=== PATIENT | female | born 1970 | race Caucasian/White ===

== ENCOUNTER 2022-11-10 12:09 | Day surgery (SDC) | payer OTHER ==
[~2022-11-10] VITALS: Ht 160 cm; Wt 57.0 kg
[~2022-11-10 12:09] MED LIST: HYDROCODON-ACE1 EA10 PO; IBUPROFEN600 MG PO; LEVOTHYROXINE25 MCG PO; MAPAP325 MG PO; ZYRTEC10 MG PO
--- NOTE | 2022-11-10 14:24 | NUR ---
11/10/22 1424 Marielle Darden 1404 PT ARRIVED IN PACU AWAKE WITH NO C/O'S. ABD SOFT. 1415 DR AT BEDSIDE. ALL QUESTIONS ANSWERED. 1424 RESTING. REU.
--- NOTE | 2022-11-11 17:43 | OR ---
[facility] [address] [place], [place] [address] Signed DATE OF OPERATION: 11/10/2022 SURGEON: Young Medina MD PREOPERATIVE DIAGNOSIS: Colon screening. POSTOPERATIVE DIAGNOSIS: Small polyps x2, low rectum. PROCEDURE: Total colonoscopy to cecum with cold morcellation polypectomy x2. ANESTHESIA: Intravenous sedation, fentanyl 175 mcg and Versed 9 mg. INDICATIONS: This 52-year-old white woman is a patient of Dr. Ochoa and is referred for screening colonoscopy. She has never had colonoscopy in the past and has no symptoms of bleeding, diarrhea, or constipation. She has no family history of colon cancer. She did undergo cholecystectomy by me in 2015. She is admitted to undergo screening colonoscopy and understands the risks of bleeding, infection, and perforation. FINDINGS: The prep was excellent. Complete colonoscopy was undertaken to the cecum. She had two very small polyps of the low rectum, possibly hyperplastic, but one at least look adenomatous, though very small. DESCRIPTION OF PROCEDURE: The patient was brought to the endoscopy suite and placed in lateral decubitus position given intravenous sedation to the point of slurred speech and nystagmus. Digital rectal examination was normal. An Olympus video colonoscope was passed into the rectum and manipulated throughout the colon. Various maneuvers were required to ultimately pass the hepatic flexure and ultimately to the cecum. Full intubation of the cecum was accomplished. The ileocecal valve and appendiceal orifice were normal. The scope was withdrawn from that point. Careful inspection throughout showed no sign of abnormality until the rectum, at which point two small polyps, one of which was adenomatous; the other probably hyperplastic were noted. Both were excised with cold morcellation technique. Retroflexed view was Electronically Signed By: YOUNG MEDINA MD 11/11/22 1743 PATIENT NAME: KRYSTYNA WALDRON OPERATIVE REPORT DATE OF : 72 REPORT #: [id number] PHYSICIAN: YOUNG MEDINA MD PCP: NO PRIMARY CARE PHYSICIAN REPORT IS CONFIDENTIAL AND NOT TO BE RELEASED WITHOUT AUTHORIZATION [facility] [address] [place] [facility] [place], [place] [address] Signed otherwise normal. The scope was removed, then the patient taken to the recovery room in good condition. CONCLUDING DIAGNOSIS: Small polyps x2. PLAN: Recommend repeat colonoscopy in 5 years or sooner if clinically indicated. She will return to the ongoing care of Dr. Ochoa. MD LUTHER Eldridge/MODL /[id number] cc: Harshil Ochoa DO Copies: HARSHIL OCHOA DO ~ Electronically Signed By: YOUNG MEDINA MD 11/11/22 1743 PATIENT NAME: KRYSTYNA WALDRON OPERATIVE REPORT DATE OF : 72 REPORT #: [id number] PHYSICIAN: YOUNG MEDINA MD PCP: NO PRIMARY CARE PHYSICIAN REPORT IS CONFIDENTIAL AND NOT TO BE RELEASED WITHOUT AUTHORIZATION
--- NOTE | 2022-11-12 18:00 | PATH ---
[facility] [address] [facility] [place] [place] [address] Signed SPECIMEN(S): A RECTAL POLYPS SPECIMEN SOURCE: A. RECTAL POLYPS CLINICAL HISTORY: Screening. Post: Polyps x 2. FINAL PATHOLOGIC DIAGNOSIS: Rectal polyps: - Inflamed hyperplastic polyps (two fragments). JVR:cml:C2NR MICROSCOPIC EXAMINATION: Histologic sections of all submitted blocks are examined by light microscopy. These findings, together with the gross examination, support the pathologic diagnosis. GROSS DESCRIPTION: The specimen, labeled and designated "Tianna rectal polyps," is received in formalin and consists of two berry soft tissue fragments, both 0.2 cm. Entirely submitted in (A1). AC (under the direct supervision of a pathologist) The Gross Description was prepared using a voice recognition system. The report was reviewed for accuracy; however, sound-alike word errors, addition and/or deletions may occur. If there is any question about this report, please contact Client Services. PERFORMING LABORATORY: The technical component was performed by [facility], [address] [place] [id number] (CLIA# [id number]). Professional interpretation was performed by [facility], [address] [place] [id number] (CLIA#: [id number]). Diagnostician: Brad David MD Pathologist Electronically Signed 11/12/2022 PATIENT NAME: KRYSTYNA WALDRON PATHOLOGY DATE OF : 72 REPORT #: [id number] PHYSICIAN: PRANAV GUERRIER PCP: NO PRIMARY CARE PHYSICIAN REPORT IS CONFIDENTIAL AND NOT TO BE RELEASED WITHOUT AUTHORIZATION
== END 2022-11-10 14:50 | disposition home or self-care (01) ==
LOC: OPS 12:09 → DS 12:16 → OPS 13:00
PROVIDERS: ATTEND Surgery
PROC: 0DBP8ZZ Excision of Rectum, Via Natural or Artificial Opening Endoscopic (ICD-10-PCS; principal; 2022-11-10 13:00)
DX: Z12.11 Encounter for screening for malignant neoplasm of colon (principal); K62.1 Rectal polyp; E03.9 Hypothyroidism, unspecified; Z79.899 Other long term (current) drug therapy
CPT/HCPCS: 99153; G0500; J2250; J3010; J7121